=== PATIENT | female | born 1975 | race Caucasian/White ===

== ENCOUNTER 2016-09-18 13:13 | Emergency (ER) | payer BC, MEDICAID ==
[~2016-09-18] VITALS: Wt 77.5 kg
[~2016-09-18 13:13] MED LIST: IBUP-40 PO; SENN25TA PO
[2016-09-18] MEDS ORDERED: ONDANSETRON 4 MG INJ IV STA (14:29)
[2016-09-18] MEDS ORDERED: morphine 4 MG/ML VIAL IV STA ×2 (14:29→15:31)
[2016-09-18 14:50] LABS: URINE BLOOD (Dip) POC Negative (NEGATIVE)
[2016-09-18 15:08] LABS: ADD SCAN DIFF NO
[2016-09-18 15:11] LABS: ABNORMAL IP MESSAGE 1; BASOPHIL # 0.1 10^3/ul (0.0-0.1); BASOPHILS % 0.6 % (0.0-2.0); EOSINOPHILS # 0.1 10^3/ul (0.0-0.5); EOSINOPHILS % 1.4 % (0.0-7.0); LYMPHOCYTES # 2.6 10^3/ul (0.8-2.9); LYMPHOCYTES % 27.7 % (15.0-51.0); MEAN CORPUSCULAR HEMOGLOBIN 25.3 pg (29.0-33.0); MEAN CORPUSCULAR HGB CONC 31.6 g/dl (32.0-37.0); MEAN CORPUSCULAR VOLUME 80.2 fl (82.0-101.0); MEAN PLATELET VOLUME 9.8 fl (7.4-10.4); MONOCYTE # 0.7 10^3/ul (0.3-0.9); NEUTROPHIL # 5.9 10^3/ul (1.6-7.5); NEUTROPHILS % 63.1 % (39.0-77.0); PLATELET COUNT 345 10^3/UL (140-415); RED BLOOD COUNT 4.74 10^6/ul (4.20-5.40); RED CELL DISTRIBUTION WIDTH 24.1 % (11.5-14.5); WHITE BLOOD COUNT 9.3 10^3/ul (4.8-10.8)
--- NOTE | 2016-09-18 15:17 | ERD ---
ER Documentation Chief Complaint Date/Time DATE: 09/18/16 TIME: 15:08 Chief Complaint LOW BACK PAIN NON TRAUMATIC FOR 1WK. NO DYSURIA. RADIATING TO L GROIN HPI This is a 41-year-old female presenting to the emergency department for left lower back pain radiating to left lower quadrant abdomen 1 week. Patient also states pain radiates to left groin. Patient also reports malaise and fatigue. No fevers or chills. Patient was recently diagnosed with anemia and started on iron tablets 1 month ago. No pelvic pain or abnormal vaginal bleeding. No dysuria, hematuria, urinary frequency or urinary urgency. No vaginal discharge. No difficulty urinating . No vomiting or diarrhea.. Patient's last menstrual period 09/10/2016. Patient took ibuprofen this morning with no relief of symptoms. No chest pain, shortness of breath or difficulty breathing. No stridor or labored breathing. ROS All systems reviewed and are negative except as per history of present illness. Medications Home Meds Active Scripts Ibuprofen* (Motrin*) 600 Mg Tab, 600 MG PO Q6, #15 TAB Prov:DAYNE WATERS NP 09/18/16 Hydrocodone/Acetaminophen ([place] 5-325 Tablet) 1 Each Tablet, 1 TAB PO Q6H Y for PAIN, #15 TAB Prov:DAYNE WATERS NP 09/18/16 Reported Medications Sennosides (Laxative-Senna) 25 Mg Tablet, 25 MG PO DAILY 10/18/13 Ibuprofen (Advil) 200 Mg Tablet, 600 MG PO Q6 12/19/10 Allergies Allergies: Coded Allergies: No Known Allergies (Verified Allergy, Mild, 10/25/13) PMhx/Soc History of Surgery: No (, HEMMRROID SURG) Anesthesia Reaction: No Hx Neurological Disorder: No Hx Respiratory Disorders: No Hx Cardiac Disorders: No Hx Psychiatric Problems: No Hx Miscellaneous Medical Probl: No Hx Alcohol Use: No Hx Substance Use: No Hx Tobacco Use: No Smoking Status: Never smoker Physical Exam Vitals Vital Signs Date Time Temp Pulse Resp B/P Pulse Ox O2 Delivery O2 Flow Rate FiO2 09/18/16 13:17 98.2 78 20 114/63 99 Physical Exam Const: alert, non toxic appearing Head: Atraumatic Eyes: Normal Conjunctiva ENT: Normal External Ears, Nose and Mouth. Neck: Full range of motion..~ No meningismus. Resp: Clear to auscultation bilaterally. No wheezing, rhonchi or crackles. Cardio: Regular rate and rhythm, no murmurs Abd: Soft, non tender, non distended. Normal bowel sounds Skin: No petechiae or rashes Back: No midline or flank tenderness. No CVA tenderness. Ext: No cyanosis, or edema. positive straight left leg maneuver Neur: Awake and alert Psych: Normal Mood and Affect Result Diagram: 09/18/16 1450 09/18/16 1450 Results 24 hrs Laboratory Tests Test 09/18/16 14:50 09/18/16 14:52 White Blood Count 9.310^3/ul Red Blood Count 4.7410^6/ul Hemoglobin 12.0g/dl Hematocrit 38.0% Mean Corpuscular Volume 80.2fl Mean Corpuscular Hemoglobin 25.3pg Mean Corpuscular Hemoglobin Concent 31.6g/dl Red Cell Distribution Width 24.1% Platelet Count 17544^3/UL Mean Platelet Volume 9.8fl Neutrophils % 63.1% Lymphocytes % 27.7% Monocytes % 7.0% Eosinophils % 1.4% Basophils % 0.6% Nucleated Red Blood Cells % 0.0/100WBC Neutrophils # 5.910^3/ul Lymphocytes # 2.610^3/ul Monocytes # 0.710^3/ul Eosinophils # 0.110^3/ul Basophils # 0.110^3/ul Nucleated Red Blood Cells # 0.010^3/ul Sodium Level 139mmol/L Potassium Level 3.9mmol/L Chloride Level 109mmol/L Carbon Dioxide Level 28mmol/L Anion Gap 6 Blood Urea Nitrogen 11mg/dl Creatinine 0.84mg/dl Glucose Level 84mg/dl Calcium Level 8.9mg/dl Total Bilirubin 0.1mg/dl Direct Bilirubin 0.00mg/dl Indirect Bilirubin 0.1mg/dl Aspartate Amino Transf (AST/SGOT) 24IU/L Alanine Aminotransferase (ALT/SGPT) 35IU/L Alkaline Phosphatase 95IU/L Total Protein 7.4g/dl Albumin 4.0g/dl Globulin 3.40g/dl Albumin/Globulin Ratio 1.17 Bedside Urine pH (LAB) 7.0 Bedside Urine Protein (LAB) Negative Bedside Urine Glucose (UA) Negative Bedside Urine Ketones (LAB) Negative Bedside Urine Blood Negative Bedside Urine Nitrite (LAB) Negative Bedside Urine Leukocyte Esterase (L Negative Current Medications Medications (Trade) Dose Ordered Sig/Suha Route PRN Reason Start Time Stop Time Status Last Admin Dose Admin Morphine Sulfate (morphine) 4 mg ONCE STAT IV 09/18/16 14:29 09/18/16 14:32 DC 09/18/16 15:01 Ondansetron HCl (Zofran Inj) 4 mg ONCE STAT IV 09/18/16 14:29 09/18/16 14:32 DC 09/18/16 15:01 Morphine Sulfate (morphine) 4 mg ONCE STAT IV 09/18/16 15:31 09/18/16 15:32 DC 09/18/16 15:56 Ketorolac Tromethamine (Toradol) 30 mg ONCE STAT IV 09/18/16 15:54 09/18/16 15:56 DC 09/18/16 16:00 Procedures/MDM MDM: 41-year-old female presents emergency department for left lower back pain radiating to left lower quadrant abdomen 1 week that has been getting worse today. No active vomiting or diarrhea. No fevers or chills. Patient also reports malaise and fatigue. IV access obtained and patient given morphine and Zofran. CBC and CMP were also drawn per field staff. Urine dip is negative for infection and urine is negative. Labs are unremarkable. No significant infection or anemia. Electrolytes are normal. Upon reassessment, patient continues to have pain. Patient given another dose of morphine 4 mg IV and Toradol 30 mg IV. Ultrasound pelvis reviewed by radiologist as left ovarian cyst, 3.0 cm. Otherwise unremarkable. Maintain bilateral ovarian vascular flow. No free fluid or abnormal adnexal mass. CT abdomen and pelvis reviewed by radiologist as 1.3 mm nonobstructive nephrolith is noted in the left lower third of the kidney. 2.4 cm benign cyst left ovary. Mild disc space narrowing L4-5 and L5-S1 with mild associated disc bulges. Grade 1 anterolisthesis. Patient remains alert and oriented. Patient is calm and stable. Low suspicion for ovarian torsion, ectopic , obstructive uropathy, appendicitis, diverticulitis and cholecystitis. Patient's diagnosis is left ovarian cyst and nephrolithiasis. Instructed patient to follow-up with primary care provider or [facility] in the next 2-3 days for reassessment. Patient states she has an appointment on September 23 with her [facility]. Return to ED for any high fever, chest pain, difficulty breathing, shortness breath, wheezing, vomiting, diarrhea, abdominal pain or any new or worsening symptoms. Patient verbalizes understanding. All questions answered at discharge. Patient was signed out to Urszula Morgan to reassess vitals upon discharge home. Departure Diagnosis: Primary Impression: Ovarian cyst Laterality: left Qualified Code: N83.202 - Cyst of left ovary Additional Impression: Nephrolith Condition: Stable DAYNE WATERS NP September 18, 2016 15:17
[2016-09-18 15:29] LABS: POTASSIUM 3.9 mmol/L (3.5-5.1)
[2016-09-18 15:31] LABS: ALBUMIN/GLOBULIN RATIO 1.17; BILIRUBIN,INDIRECT 0.1 mg/dl (0-1.1); BILIRUBIN,TOTAL 0.1 mg/dl (0.2-1.3); CREATININE 0.84 mg/dl (0.44-1.00); TOTAL PROTEIN 7.4 g/dl (6.1-8.1)
[2016-09-18 15:32] LABS: CALCIUM 8.9 mg/dl (8.4-10.2)
--- NOTE | 2016-09-18 15:45 | RADRPT ---
PROCEDURE: CT scan of the abdomen and pelvis with IV contrast. CLINICAL INDICATION: Left lower back pain radiating to the left lower quadrant. TECHNIQUE: Thin section axial, coronal and sagittal images were performed through the abdomen and pelvis without contrast and then following the injection of 100 cc of Isovue 370. Radiation Dose: CTDI: 12.2 and DLP: 655 One or more of the following dose reduction techniques were used: - Automated exposure control. - Adjustment of the mA and/or kV according to patient size. Use of iterative reconstruction technique. COMPARISON: CT scan abdomen pelvis 09/08/2013 12:08 a.m. FINDINGS: Soft tissues: There is a small umbilical hernia containing fat. Lungs and pleural spaces: There is peripheral ground-glass infiltrate in the right left lower lobe s uspicious for atelectasis. No pulmonary nodule or pleural effusion is identified. Heart: Normal. The liver, common bile duct and gallbladder: The liver measures 14.8 cm AP. No hepatic mass or intr ahepatic biliary ductal dilatation is identified. The gallbladder and gallbladder wall are normal. Gastrointestinal: There is no hiatal hernia. There is fluid and particulate matter in the stomach. The small bowel loops have a normal caliber. There is fecal material in the colon. There is no ev idence of diverticulosis or diverticulitis. There is fecal material in the sigmoid colon and rectal ampulla. The vermiform appendix is not visualized. Pancreas: Normal. Kidneys, bladder and adrenal glands : A 1.3 mm nonobstructive nephrolith is noted in the lower thir d of the left kidney. There is a 1 mm nonobstructive nephrolith in the upper middle of the left kid ariana. The urinary bladder is normal. Spleen: Normal. Lymph nodes: Normal. There are small inguinal lymph nodes. Reproductive system and pelvis : The uterus is normal. There is a 2.4 cm benign cyst in the left ov varun. There is a small dominant follicle in the right ovary. Bony elements: There are small degenerative osteophytes in the lower thoracic spine. There is disk space narrowing at L4-5. There is straightening of the lumbar curvature. There is mild grade 1 ant erolisthesis of L5 relative to L4. There is a 4.3 mm pseudo disk bulge at L4-5. There is disk space narrowing at L5-S1. There is a 3.5 mm mild disk bulge at L5-S1. There is no evidence of spondyloly sis. No acute bony fracture or bone metastasis is identified. Vasculature: Normal. IMPRESSION: 1. A 1.3 mm nonobstructive nephrolith is noted in the lower third of the left kidney. 2. 2.4 cm benign cyst left ovary. This was previously reported on the pelvic not of the sonogram da millie 09/18/2016. 3. Grade 1 anterolisthesis of the L5 to L4 which is likely result of ligamentous laxity. 4. Mild disk space narrowing at L4-5 and L5-S1 with mild associated disk bulges as described above. RPTAT:AAJJ Physician Kristi Date Time Electronically viewed and signed by Physician Kristi on 09/18/2016 15:45 JEREMIAH/
--- NOTE | 2016-09-18 15:47 | RADRPT ---
PROCEDURE: Ultrasound pelvis CLINICAL INDICATION: lower abdominal pain, hx of ovarian cysts TECHNIQUE: Multiple whittington scale and color Doppler images of the pelvis were obtained transabdominal ly and transvaginally. Images were reviewed PACS workstation COMPARISON: None FINDINGS: The uterus is identified, measuring 9.3 x 6.6 x 6.5 cm. The endometrial canal appears within normal limits, measuring 6 mm in thickness. The right ovary measures 3.5 by 2.3 x 3.3 cm. The left ovary measures 3.8 x 2.7 x 3.6 cm. There is a 3.0 cm left ovarian cyst. The ovaries appear otherwise unremarkable in echotexture. There is bi lateral vascular flow identified. There is no evidence of free fluid. There is no abnormal adnexal mass. IMPRESSION: Left ovarian cyst, 3.0 cm. Otherwise unremarkable exam. Maintained bilateral ovarian vascular flow . No free fluid or abnormal adnexal mass identified. RPTAT: HBST .Ebenezer Osborn MD, MD Date Time Electronically viewed and signed by .Ebenezer Osborn MD, on 09/18/2016 15:46 .T/
[2016-09-18] MEDS ORDERED: KETOROLAC 30 MG INJ IV STA (15:54)
[2016-09-18] MEDS ORDERED: HYDR-906 PO (16:02)
[2016-09-18] MEDS ORDERED: IBUP-1542 PO (16:02)
[2016-09-18 16:29] VITALS: BP 124/61; PULSE 77; RESP 18; TEMP 98.6
== END 2016-09-18 16:30 | disposition home or self-care (01) ==
LOC: FTE 13:13
DX: N83.202 Unspecified ovarian cyst, left side (principal); N20.0 Calculus of kidney
CPT/HCPCS: 74176; 76830; 76856; 80053; 81003; 85025; J1885; J2270; J2405; 96374; 96375; 96376

== ENCOUNTER 2017-12-17 10:47 | Emergency (ER) | END 2017-12-17 14:49 | disposition home or self-care (01) ==